=== PATIENT | female | born 1965 | race Caucasian/White ===

== ENCOUNTER 2019-12-11 20:30 | Emergency (ER) | payer OTHER ==
[~2019-12-11] VITALS: Ht 160 cm; Wt 81.8 kg
[2019-12-11] MEDS ORDERED: IBUP-2070 PO (21:06)
[2019-12-11 21:19] VITALS: BP 104/48
[2019-12-11] MEDS ORDERED: KETOROLAC TROMETHAMINE 30 MG/ML VIAL IVP ONE (22:30)
[2019-12-11] MEDS ORDERED: ACETAMINOPHEN 500 MG TABLET PO ONE (22:30)
[2019-12-11] MEDS ORDERED: DIAZEPAM 5 MG/ML 2 ML SYRINGE IVP ONE (22:30)
[2019-12-11] MEDS ORDERED: LIDOCAINE 5% TRANSDERMAL PATCH TD ONE (22:30)
[2019-12-12] MEDS ORDERED: KETOROLAC TROMETHAMINE 30 MG/ML VIAL IVP ONE (00:15)
== END 2019-12-12 01:18 | disposition home or self-care (01) ==
LOC: EMS 20:33
DX: M54.5 Low back pain (principal); M25.551 Pain in right hip; F17.210 Nicotine dependence, cigarettes, uncomplicated; W01.0XXA Fall on same level from slipping, tripping and stumbling without subsequent striking against object, initial encounter; Y93.89 Activity, other specified; Y92.89 Other specified places as the place of occurrence of the external cause; Y99.8 Other external cause status
CPT/HCPCS: 72100; 72170; 96374; 96375; 96376; 99284; J1885 ×3

== ENCOUNTER 2019-12-23 21:30 | Emergency (ER) | payer OTHER ==
[~2019-12-23] VITALS: Ht 157.5 cm; Wt 81.8 kg
[~2019-12-23 21:30] MED LIST: IBUP-2070 PO
[2019-12-23 22:38] LABS: APPEARANCE,URINE TURBID (CLEAR); GLUCOSE, URINE (UA) NEGATIVE (NEGATIVE); KETONES,URINE 40 mg/dL (NEGATIVE); LEUKOCYTE ESTERASE ,URINE MODERATE (NEGATIVE); NITRATE,URINE POSITIVE (NEGATIVE); OCCULT BLOOD,URINE LARGE (NEGATIVE); PROTEIN,URINE SEE CONFIRM (NEGATIVE)
[2019-12-23 22:39] LABS: BILIRUBIN,URINE PRELIM. POSITIVE (NEGATIVE)
[2019-12-23 22:44] LABS: SULFOSALICYLIC ACID,URINE 4+ (Negative)
[2019-12-23 22:46] LABS: BACTERIA,URINE Many /HPF (None Seen); RBC,URINE Full Field /HPF (0-2); WBC,URINE >100 /HPF (0-5)
[2019-12-23 22:47] LABS: SQUAMOUS EPITHELIAL CELL,UR Few /LPF (None Seen)
[2019-12-23 23:10] VITALS: BP 153/82
== END 2019-12-23 23:10 | disposition home or self-care (01) ==
LOC: EMS 21:30
DX: N10 Acute pyelonephritis (principal); F17.210 Nicotine dependence, cigarettes, uncomplicated; Z79.899 Other long term (current) drug therapy
CPT/HCPCS: 87086

== ENCOUNTER 2021-12-25 15:47 | Emergency (ER) | payer OTHER ==
[~2021-12-25] VITALS: Ht 157.5 cm; Wt 81.8 kg
[2021-12-25 15:59] VITALS: BP 125/72
[2021-12-25 17:06] LABS: BASOPHILS % (AUTO) 0.5 % (0.0-2.0); EOSINOPHILS % (AUTO) 2.9 % (1.0-6.0); HEMATOCRIT 42.1 % (36-46); HEMOGLOBIN 13.8 g/dL (12.0-16.0); LYMPHOCYTES # (AUTO) 2.3 K/uL (1.0-4.8); LYMPHOCYTES % (AUTO) 27.1 % (22.0-44.0); MEAN CORPUSCULAR HEMOGLOBIN 30.7 pg (26.0-34.0); MEAN CORPUSCULAR HGB CONC 32.8 G/dL (31.0-37.0); MEAN CORPUSCULAR VOLUME 94 fL (80-100); MONOCYTES # (AUTO) 0.7 K/uL (0.1-1.0); MONOCYTES % (AUTO) 8.7 % (2.0-9.0); NEUTROPHILS # (AUTO) 5.2 K/uL (1.8-7.7); NEUTROPHILS % (AUTO) 60.8 % (40.0-70.0); PLATELET COUNT (AUTO) 340 K/uL (150-450); RED BLOOD CELL COUNT(AUTO) 4.49 MIL/uL (4.00-5.20); RED CELL DISTRIBUTION WIDTH 13.3 % (11.5-14.5)
[2021-12-25 17:25] LABS: ANION GAP 9 mmol/L (8-16); CALCIUM, TOTAL 9.8 mg/dL (8.8-10.5); CARBON DIOXIDE 29 mmol/L (22-29); CHLORIDE 101 mmol/L (98-107); CREATININE 0.95 mg/dL (0.60-1.30); GLUCOSE,RANDOM 140 mg/dL (70-110); POTASSIUM 3.8 mmol/L (3.5-5.1); SODIUM SERUM 139 mmol/L (136-145); UREA NITROGEN, BLOOD 13 mg/dL (7-18)
[2021-12-25 17:26] LABS: GLOMERULAR FILTR. RATE CALC > 60 mL/min (>60)
[2021-12-25 17:40] LABS: ALANINE AMINOTRANSFERASE 26 U/L (12-78); ALBUMIN 3.6 g/dL (3.4-5.0); ALKALINE PHOSPHATASE 110 U/L (46-116); ASPARTATE AMINOTRANSFERASE 18 U/L (15-37); BILIRUBIN,TOTAL 0.2 mg/dL (0.1-1.0); LIPASE 80 U/L (73-393); TOTAL PROTEIN, SERUM 7.7 g/dL (6.4-8.2)
[2021-12-25 17:47] LABS: APPEARANCE,URINE HAZY (CLEAR); BILIRUBIN,URINE NEGATIVE (NEGATIVE); GLUCOSE, URINE (UA) NEGATIVE (NEGATIVE); KETONES,URINE NEGATIVE (NEGATIVE); LEUKOCYTE ESTERASE ,URINE SMALL (NEGATIVE); NITRATE,URINE NEGATIVE (NEGATIVE); OCCULT BLOOD,URINE LARGE (NEGATIVE); PROTEIN,URINE 100-200,SEE CONFIRM mg/dL (NEGATIVE); UROBILINOGEN,URINE <=1.0 mg/dL (<=1.0)
[2021-12-25 18:04] LABS: AMORPHOUS SEDIMENT,UR Few /LPF (None Seen); BACTERIA,URINE Many /HPF (None Seen); SQUAMOUS EPITHELIAL CELL,UR Moderate /LPF (None Seen)
[2021-12-25 18:07] LABS: SULFOSALICYLIC ACID,URINE 2+ (Negative)
[2021-12-25] MEDS ORDERED: CEFD300C18 PO (18:20)
== END 2021-12-25 18:36 | disposition home or self-care (01) ==
LOC: EMS 16:27
DX: N39.0 Urinary tract infection, site not specified (principal); F17.210 Nicotine dependence, cigarettes, uncomplicated; Z86.69 Personal history of other diseases of the nervous system and sense organs; Z98.890 Other specified postprocedural states
CPT/HCPCS: 80053; 81001; 81002; 83690; 84484; 85025; 87086; 99283